=== PATIENT | female | born 2000 | race Hispanic/Latino ===

== ENCOUNTER 2024-10-22 11:04 | Day surgery (SDC) | payer MEDICAID ==
[2024-10-22 11:48] VITALS: BMI 35.3
[2024-10-22 12:12] LABS: Protein, Urine Random Quant Less than 10 mg/dL (1-14)
[2024-10-22 12:37] LABS: #Basophils Less than 0.03 10x3/uL (0.0-0.2); #Eosinophils 0.07 10x3/uL (0.0-0.5); #Monocytes 0.57 10x3/uL (0.0-1.1); #Neutrophils 5.61 10x3/uL (1.5-8.4); %Basophils 0.2 % (0.0-2.0); %Eosinophils 0.8 % (0.0-6.0); %Lymphocytes 25.1 % (18.0-47.0); %Monocytes 6.8 % (0.0-10.0); %Neutrophils 66.6 % (40.0-75.0); Hematocrit 39.0 % (34.9-44.5); Hemoglobin 13.2 g/dL (12.0-15.5); Mean Corpuscular Hemoglobin 29.7 pg (27.0-33.0); Mean Corpuscular Volume 87.8 fL (81.6-98.3); Platelet Count 221 10x3/uL (150-450); Red Blood Cell (RBC) Count 4.44 10x6/uL (3.90-5.03); White Blood Cell (WBC) Count 8.42 10x3/uL (3.5-10.5)
[2024-10-22 12:55] LABS: ALT (SGPT) 12 U/L (Less than 34); AST (SGOT) 21 U/L (11-34); Albumin 3.1 g/dL (3.1-4.5); Alkaline Phosphatase 147 U/L (40-110); Anion Gap 11 mmol/L (10-20); BUN (Urea Nitrogen) 10 mg/dL (7.0-18.7); Bilirubin, Total 0.2 mg/dL (0.3-1.2); Calc. Creatinine Clearance 178 mL/min (70-130); Calcium 9.1 mg/dL (7.8-10.44); Carbon Dioxide 19 mmol/L (22-29); Chloride 111 mmol/L (98-107); Globulin 3.9 g/dL (2.4-3.5); Glucose 81 mg/dL (70-105); Potassium 4.0 mmol/L (3.5-5.1); Sodium 137 mmol/L (136-145)
[2024-10-22] MEDS ORDERED: hydrALAZINE 20 MG/ML VIAL SLOW IVP PRN (13:27)
[2024-10-22 13:54] VITALS: BP 123/61
== END 2024-10-22 15:55 | disposition home or self-care (01) ==
LOC: CSHLD/OP 11:04
PROVIDERS: ATTEND Emergency Medicine
DX: O99.891 Other specified diseases and conditions complicating pregnancy (principal); R03.0 Elevated blood-pressure reading, without diagnosis of hypertension; R10.11 Right upper quadrant pain; O24.419 Gestational diabetes mellitus in pregnancy, unspecified control; O99.213 Obesity complicating pregnancy, third trimester; Z3A.35 35 weeks gestation of pregnancy; Z91.148 Patient's other noncompliance with medication regimen for other reason; Z79.899 Other long term (current) drug therapy
CPT/HCPCS: 76819; 80053; 82570; 84156; 85025; 99284

== ENCOUNTER 2024-10-25 15:17 | Inpatient (IN) | payer MEDICAID, OTHER, SELFPAY ==
[~2024-10-25 15:17] MED LIST: Bupivacaine 0.25% HCL 30 ML VIAL ONE
[2024-10-25 17:03] LABS: #Basophils 0.03 10x3/uL (0.0-0.2); #Eosinophils 0.04 10x3/uL (0.0-0.5); #Monocytes 0.68 10x3/uL (0.0-1.1); #Neutrophils 4.39 10x3/uL (1.5-8.4); %Basophils 0.4 % (0.0-2.0); %Eosinophils 0.6 % (0.0-6.0); %Lymphocytes 27.3 % (18.0-47.0); %Monocytes 9.6 % (0.0-10.0); %Neutrophils 61.7 % (40.0-75.0); Hematocrit 37.8 % (34.9-44.5); Hemoglobin 12.9 g/dL (12.0-15.5); Mean Corpuscular Hemoglobin 29.9 pg (27.0-33.0); Mean Corpuscular Volume 87.7 fL (81.6-98.3); Platelet Count 230 10x3/uL (150-450); Red Blood Cell (RBC) Count 4.31 10x6/uL (3.90-5.03); White Blood Cell (WBC) Count 7.11 10x3/uL (3.5-10.5)
[2024-10-25 17:20] LABS: Protein, Urine Random Quant Less than 10 mg/dL (1-14)
[2024-10-25 17:26] LABS: ALT (SGPT) 16 U/L (Less than 34); AST (SGOT) 20 U/L (11-34); Albumin 3.2 g/dL (3.1-4.5); Alkaline Phosphatase 148 U/L (40-110); Anion Gap 16 mmol/L (10-20); BUN (Urea Nitrogen) 9 mg/dL (7.0-18.7); Bilirubin, Total 0.2 mg/dL (0.3-1.2); Calc. Creatinine Clearance 0 mL/min (70-130); Calcium 8.7 mg/dL (7.8-10.44); Carbon Dioxide 15 mmol/L (22-29); Chloride 112 mmol/L (98-107); Globulin 3.8 g/dL (2.4-3.5); Glucose 89 mg/dL (70-105); Potassium 4.0 mmol/L (3.5-5.1); Sodium 139 mmol/L (136-145)
[2024-10-25 18:18] VITALS: BMI 36.7
[2024-10-25] MEDS ORDERED: Ondansetron PF 4 MG/2 ML Vial IVP PRN (21:56)
[2024-10-25] MEDS ORDERED: hydrALAZINE 20 MG/ML VIAL SLOW IVP PRN (21:56)
[2024-10-26] MEDS: NIFEdipine XL 90 MG ER.TAB PO SCH (07:32)
[2024-10-26 10:29] LABS: #Basophils Less than 0.03 10x3/uL (0.0-0.2); #Eosinophils 0.06 10x3/uL (0.0-0.5); #Monocytes 0.37 10x3/uL (0.0-1.1); #Neutrophils 5.56 10x3/uL (1.5-8.4); %Basophils 0.3 % (0.0-2.0); %Eosinophils 0.8 % (0.0-6.0); %Lymphocytes 24.3 % (18.0-47.0); %Monocytes 4.6 % (0.0-10.0); %Neutrophils 69.6 % (40.0-75.0); Hematocrit 38.5 % (34.9-44.5); Hemoglobin 12.8 g/dL (12.0-15.5); Mean Corpuscular Hemoglobin 29.6 pg (27.0-33.0); Mean Corpuscular Volume 88.9 fL (81.6-98.3); Platelet Count 211 10x3/uL (150-450); Red Blood Cell (RBC) Count 4.33 10x6/uL (3.90-5.03); White Blood Cell (WBC) Count 7.98 10x3/uL (3.5-10.5)
[2024-10-26 10:45] LABS: ALT (SGPT) 14 U/L (Less than 34); AST (SGOT) 22 U/L (11-34); Albumin 3.1 g/dL (3.1-4.5); Alkaline Phosphatase 141 U/L (40-110); Anion Gap 17 mmol/L (10-20); BUN (Urea Nitrogen) 11 mg/dL (7.0-18.7); Bilirubin, Total 0.2 mg/dL (0.3-1.2); Calc. Creatinine Clearance 159 mL/min (70-130); Calcium 9.1 mg/dL (7.8-10.44); Carbon Dioxide 15 mmol/L (22-29); Chloride 110 mmol/L (98-107); Globulin 3.8 g/dL (2.4-3.5); Glucose 143 mg/dL (70-105); Potassium 4.0 mmol/L (3.5-5.1); Sodium 138 mmol/L (136-145)
[2024-10-26] MEDS ORDERED: Acetaminophen 500 MG TAB PO PRN (13:17)
[2024-10-26] MEDS ORDERED: Tranexamic Acid 1,000 MG/10 ML VIAL IVP PRN (13:17)
[2024-10-26] MEDS ORDERED: Lidocaine 1% (PF) 30 ML VIAL SC PRN (13:17)
[2024-10-26] MEDS ORDERED: Ondansetron PF 4 MG/2 ML Vial IVP PRN (13:17)
[2024-10-26] MEDS ORDERED: Calcium Gluc 4.6 MEQ/10 ML (100 MG/ML) SLOW IVP PRN (13:20)
[2024-10-26] MEDS ORDERED: Oxytocin 30 units/NS 500 ML 500 ML IV SCH ×4 (13:30→13:45)
[2024-10-26] MEDS ORDERED: Penicillin G Potassium 5 MILL.UNITS in Sodium Chloride 0.9% 100 ML IVPB SCH (13:45)
[2024-10-26] MEDS: Magnesium Sulfate 20 gm/500 ml 20 GM/500 ML BAG IVPB SCH (15:03)
[2024-10-26 15:37] LABS: #Basophils Less than 0.03 10x3/uL (0.0-0.2); #Eosinophils 0.05 10x3/uL (0.0-0.5); #Monocytes 0.65 10x3/uL (0.0-1.1); #Neutrophils 5.79 10x3/uL (1.5-8.4); %Basophils 0.2 % (0.0-2.0); %Eosinophils 0.6 % (0.0-6.0); %Lymphocytes 25.0 % (18.0-47.0); %Monocytes 7.5 % (0.0-10.0); %Neutrophils 66.4 % (40.0-75.0); Hematocrit 39.6 % (34.9-44.5); Hemoglobin 13.3 g/dL (12.0-15.5); Mean Corpuscular Hemoglobin 29.6 pg (27.0-33.0); Mean Corpuscular Volume 88.0 fL (81.6-98.3); Platelet Count 202 10x3/uL (150-450); Red Blood Cell (RBC) Count 4.50 10x6/uL (3.90-5.03); White Blood Cell (WBC) Count 8.72 10x3/uL (3.5-10.5)
[2024-10-26 15:55] LABS: ALT (SGPT) 17 U/L (Less than 34); AST (SGOT) 24 U/L (11-34); Albumin 3.3 g/dL (3.1-4.5); Alkaline Phosphatase 152 U/L (40-110); Anion Gap 17 mmol/L (10-20); BUN (Urea Nitrogen) 9 mg/dL (7.0-18.7); Bilirubin, Total 0.2 mg/dL (0.3-1.2); Calc. Creatinine Clearance 148 mL/min (70-130); Calcium 9.1 mg/dL (7.8-10.44); Carbon Dioxide 15 mmol/L (22-29); Chloride 111 mmol/L (98-107); Globulin 3.8 g/dL (2.4-3.5); Glucose 66 mg/dL (70-105); Potassium 4.2 mmol/L (3.5-5.1); Sodium 139 mmol/L (136-145)
[2024-10-26 16:13] LABS: Hep B Surf Ag - L&D Non-Reactive S/CO (NonReactive)
[2024-10-26 16:14] LABS: Syphilis Antibody Index 0.05 S/CO (<1.00 Non-Reactive)
[2024-10-26] MEDS: Penicillin G 2.5 MILL.units 2.5 MILL.UNITS in Premix 1 BAG IVPB SCH (22:23)
[2024-10-27] MEDS: hydrALAZINE 20 MG/ML VIAL SLOW IVP PRN (07:58)
[2024-10-27] MEDS: NIFEdipine XL 90 MG ER.TAB PO SCH (09:15)
[2024-10-27] MEDS ORDERED: hydrALAZINE 20 MG/ML VIAL SLOW IVP PRN ×2 (09:38)
[2024-10-27] MEDS: Oxytocin 30 units/NS 500 ML 500 ML IV SCH (16:05)
[2024-10-27] MEDS: fentaNYL/Ropivacaine Epidural 100 ML ONE (16:36)
[2024-10-27] MEDS ORDERED: diphenhydrAMINE 50 MG/ML VIAL IVP PRN (16:45)
[2024-10-27] MEDS ORDERED: Communication Order-Pharmacy FS SCH (16:45)
[2024-10-27] MEDS ORDERED: Ondansetron PF 4 MG/2 ML Vial IVP PRN (16:45)
[2024-10-28] MEDS: Acetaminophen 325 MG TAB PO PRN (01:18)
[2024-10-28] MEDS: Penicillin G Potassium 5 MILL.UNITS VIAL ONE (01:30)
[2024-10-28] MEDS: fentaNYL 2 mcg/Ropivacaine 0.2% Epidural 100 ML CADD EPIDURAL SCH (05:00)
[2024-10-28] MEDS: CEFAZOLIN 2 GM VIAL ONE (15:03)
[2024-10-28] MEDS: Azithromycin 500 MG VIAL ONE (15:03)
[2024-10-28] MEDS ORDERED: diphenhydrAMINE 50 MG/ML VIAL IVP PRN (15:25)
[2024-10-28] MEDS ORDERED: HYDROmorphone 0.5 MG/0.5 ML SYRINGE SLOW IVP PRN (15:25)
[2024-10-28] MEDS ORDERED: Ondansetron PF 4 MG/2 ML Vial IVP PRN ×2 (15:25)
[2024-10-28] MEDS ORDERED: Meperidine HCl/PF 25 MG (1 mL) VIAL SLOW IVP PRN (15:25)
[2024-10-28] MEDS ORDERED: Communication Order-Pharmacy FS SCH (15:30)
[2024-10-28] MEDS: Carboprost 250 MCG/ML AMP IM PRN (16:38)
[2024-10-28] MEDS: Diphenoxylate HCl/Atropine Tablet PO PRN (17:30)
[2024-10-28] MEDS: Ketorolac Tromethamine 30 MG (1 mL) VIAL IVP SCH (17:40)
[2024-10-28] MEDS: Lidocaine 2% MPF 10 ML AMP (For Epidural Use) ONE ×2 (18:02)
[2024-10-28] MEDS: Dexamethasone 10 MG/ML VIAL ONE (18:02)
[2024-10-28] MEDS: Ondansetron PF 4 MG/2 ML Vial ONE (18:02)
[2024-10-28] MEDS: Oxytocin 10 UNITS/ML VIAL ONE ×2 (18:03→18:04)
[2024-10-28] MEDS: PHENYLEPHRINE-NS 100 MCG/ML 10 ML SYRINGE ONE ×2 (18:03→18:04)
[2024-10-28] MEDS: Famotidine/PF 20 mg/2ml Vial ONE (18:03)
[2024-10-29 07:27] LABS: Hematocrit 35.6 % (34.9-44.5); Hemoglobin 12.0 g/dL (12.0-15.5); Mean Corpuscular Hemoglobin 29.8 pg (27.0-33.0); Mean Corpuscular Volume 88.3 fL (81.6-98.3); Platelet Count 202 10x3/uL (150-450); Red Blood Cell (RBC) Count 4.03 10x6/uL (3.90-5.03); White Blood Cell (WBC) Count 14.29 10x3/uL (3.5-10.5)
[2024-10-29] MEDS: Ketorolac Tromethamine 30 MG (1 mL) VIAL IVP PRN (08:11)
[2024-10-29] MEDS ORDERED: HYDROcodone/Acetaminophen 5/325 mg Tablet PO PRN ×2 (12:23→18:32)
[2024-10-29] MEDS: HYDROcodone/Acetaminophen 5/325 mg Tablet PO PRN ×2 (12:53→19:39)
[2024-10-29] MEDS ORDERED: Bisacodyl 10 MG SUPP PR PRN (18:32)
[2024-10-29] MEDS ORDERED: hydrALAZINE 20 MG/ML VIAL SLOW IVP PRN (18:32)
[2024-10-29] MEDS ORDERED: Oxytocin 30 units/NS 500 ML 500 ML IV SCH (18:32)
[2024-10-29] MEDS ORDERED: Lanolin Ointment 7 GM TUBE TOP PRN (18:32)
[2024-10-29] MEDS: Ferrous Sulfate 325 MG TAB PO SCH (19:29)
[2024-10-29] MEDS: Simethicone Chewable 80 MG TAB PO PRN (19:39)
[2024-10-29] MEDS: Ibuprofen 800 MG TAB PO SCH (22:01)
[2024-10-30 05:36] LABS: Hematocrit 30.3 % (34.9-44.5); Hemoglobin 10.0 g/dL (12.0-15.5); Mean Corpuscular Hemoglobin 29.7 pg (27.0-33.0); Mean Corpuscular Volume 89.9 fL (81.6-98.3); Platelet Count 206 10x3/uL (150-450); Red Blood Cell (RBC) Count 3.37 10x6/uL (3.90-5.03); White Blood Cell (WBC) Count 11.13 10x3/uL (3.5-10.5)
[2024-10-30] MEDS: Ferrous Sulfate 325 MG TAB PO SCH (07:11)
[2024-10-30] MEDS: Furosemide 20 MG TAB PO SCH (11:35)
[2024-10-30 11:56] LABS: Group B Streptococcus by PCR DETECTED (NotDetected)
[2024-10-31] MEDS: Furosemide 20 MG TAB PO SCH (08:32)
[2024-10-31] MEDS: Boostrix 0.5 ML (Tdap) VIAL (>/=7 yrs of age) IM ONE (08:50)
[2024-11-01] MEDS ORDERED: Acetaminophen 325 MG TAB PO PRN (06:09)
[2024-11-01 14:01] VITALS: BP 131/82; TEMP 98.1
== END 2024-11-01 15:00 | disposition home or self-care (01) | DRG 788 ==
LOC: CSHLD/OP 15:17 → CSHLD 22:34 → CSHPP 10-29 18:40
PROVIDERS: ADMIT Family Medicine; ATTEND Family Medicine
PROC: 0U7C7ZZ Dilation of Cervix, Via Natural or Artificial Opening (ICD-10-PCS; principal; 2024-10-27)
PROC: 10D00Z1 Extraction of Products of Conception, Low, Open Approach (ICD-10-PCS; 2024-10-27)
PROC: 0W3R7ZZ Control Bleeding in Genitourinary Tract, Via Natural or Artificial Opening (ICD-10-PCS; 2024-10-27)
DX: O13.4 Gestational [pregnancy-induced] hypertension without significant proteinuria, complicating childbirth (principal); O14.14 Severe pre-eclampsia complicating childbirth; O99.214 Obesity complicating childbirth; O24.420 Gestational diabetes mellitus in childbirth, diet controlled; O64.0XX0 Obstructed labor due to incomplete rotation of fetal head, not applicable or unspecified; O62.2 Other uterine inertia; Z79.82 Long term (current) use of aspirin; Z79.899 Other long term (current) drug therapy; Z37.0 Single live birth; Z3A.35 35 weeks gestation of pregnancy; O62.1 Secondary uterine inertia
CPT/HCPCS: 36415; 36416; 51702; 76819; 80053; 82570; 84156; 85025; 85027; 86780; 86850; 86900; 86901; 87340; 87653; 99285; J0360; J0456; J0595; J0665; J1100; J1308; J1885; J2274; J2405; J2540; J2543; J2590; J3475; J3490; J7120